=== PATIENT | female | born 2000 | race Caucasian/White ===

== ENCOUNTER 2023-06-01 14:16 | Outpatient (CLI) | payer OTHER, SELFPAY | END 2023-06-01 14:17 | disposition home or self-care (01) | LOC: NFLDREF 06-05 05:52 | PROVIDERS: PCP Family Medicine; Referring Provider Family Medicine; Visit Provider Family Medicine | DX: Z11.59 Encounter for screening for other viral diseases (principal); Z11.1 Encounter for screening for respiratory tuberculosis | CPT/HCPCS: 86480; 86787; 87341 ==

== ENCOUNTER 2023-10-21 13:44 | Outpatient (CLI) | payer OTHER, SELFPAY | END 2023-10-21 13:45 | disposition home or self-care (01) | LOC: RAD 13:45 | PROVIDERS: PCP Family Medicine; Visit Provider Family Medicine | DX: R00.0 Tachycardia, unspecified (principal) | CPT/HCPCS: 93306 ==

== ENCOUNTER 2023-10-23 09:41 | Outpatient (CLI) | payer OTHER, SELFPAY | END 2023-10-23 09:42 | disposition home or self-care (01) | LOC: FRMREF 09:42 | PROVIDERS: PCP Family Medicine; Visit Provider Family Medicine | DX: Z32.02 Encounter for pregnancy test, result negative (principal) | CPT/HCPCS: 84702 ==

== ENCOUNTER 2024-01-14 10:31 | Outpatient (CLI) | payer OTHER, SELFPAY ==
--- OUTSIDE RECORDS SUMMARY | 2024-01-17 22:04 | XMS_ITS | Clinical Summary ---
Author Organization [facility] Address [place], [place] [address] Care Team Providers Care T Rail Turner Name Role Phone Ivan Alba Pack CNM Unavailable [phone] Felicity Byrd MD Unavailable Gail Francis NP Primary Care Provider [phone] Allergies Active Allergy Reactions Criticality Noted Date Comments Codeine Hives 04/26/2014 Flu Virus Vaccine Tv 2015-16 (18 Yr And Up),Recomb Anaphylaxis,Hives,Shortne ss Of Breath,Edema High 04/23/2019 Nickel Hives 04/26/2014 Penicillins Hives 08/25/2021 D And C Red No.22 Hives 04/26/2014 Medications Medication Sig Dispensed Refills Start Date End Date Status dextroamphetamine-amphe tamine (ADDERALL) 20 mg tablet Take 20 mg by mouth 2 times daily. 01/02/2021 Active multivit with calcium,iron,min (WOMEN'S MULTIPLE VITAMINS ORAL) 07/03/2019 Active drospirenone-ethinyl estradioL (FAVIAN) 3-0.02 mg tabletIndications:Encou nter for other contraceptive management Take 1 Tablet by mouth once daily. 84 Tablet 3 08/06/2022 Active Active Problems Problem Noted Date Diagnosed Date Pap smear for cervical cancer screening 10/31/19 Overview: 10/2022 NIL Plan: Pap/HPV due in 3 years Abnormal TSH 04/26/2014 Overview: TSH (uIU/mL) Date Value 04/26/2014 <0.01 (L) Depression with anxiety 08/03/2009 Overview: Depression/anxiety since 2009 Treated with fluoxetine, therapy Resolved Problems Problem Noted Date Diagnosed Date Resolved Date IUD (intrauterine device) in place 05/02/2021 01/29/2022 Overview: Paragard IUD placed 11/15/2019 -- [facility]on since 201409/03/2014 021 Overview: Nexplanon 09/2014 Depo 05/2013-05/2014 (gained 40 lbs) Encounters Date Type Department Care Team Description 10/21/2023 2:00 PM CDT Ancillary Procedure [facility] [address] [place] [address] from Last 3 Months Immunizations Name Administration Dates Next Due COVID-19 vaccine (Otto Clave-Bio NTech 30mcg/0.3mL) 12YO+ BIVALENT PF, MDV 11/15/2021 COVID-19 vaccine (Otto Clave-Bio NTech 30mcg/0.3mL) PF, MDV 12/21/2020,11/30/2020 DTP 05/26/2000 DTaP 12/11/2003, 0,04/01/1999,01/15,1998 HIB PRP-T (ActHIB,Hiberix) 1999 HIB-HepB (Comvax) 04/01/1999,1998 Hepatitis B (Peds) 04/01/1999 Hib Conjugate, Unspecified 1999 Human Papilloma Virus Vaccine 02/25/2013, 012,03/20/2011 Inactivated Polio Vaccine 12/11/2003,,01/15/1999,11/12 Influenza Virus, Unspecified 07/24/2020(Deferred : Patient Refused) MMR 12/11/2003,1999 Meningococcal Vaccine (Menactra) 03/20/2011 Polio Virus, Unspecified 01/15/1999,1998 Rotavirus Pentavalent (ROTATEQ) 01/15/1999,11/12 Tdap 08/25/2021,03/20/2011 Varicella Vaccine 1999 Family History Medical History Relation Name Comments Drug Abuse Brother Christoph marijuana Alcoholism Father Shun does AA-sober f or 5 years 03/19/21 Drug Abuse Father Shun Cancer-breast Maternal Grandfather Hyperlipidemia Maternal Grandfather Hypertension Maternal Grandfather Celiac disease Maternal Grandmother Hyperlipidemia Maternal Grandmother Hypertension Maternal Grandmother Obesity Maternal Grandmother Addiction problem Mother Moira Depression Mother Moira Hyperlipidemia Mother Moira Obesity Mother Moira Heart attack Paternal Grandfather Other Paternal Grandfather truck a ccident Diabetes Paternal Grandmother brought by years or drug abuse - ruined her pancrease Drug Abuse Paternal Grandmother Multiple endocrine neoplasia No Family History Thyroid cancer No Family History Relation Name Status Comments Brothmeena Hawthorne Alive Father Shun Alive Maternal Grandfather Alive Maternal Grandmother Alive Mother Moira Alive Paternal Grandfather (Age 52) Paternal Grandmother Social History Tobacco Use Types Packs/Day Years Used Date Smoking Tobacco: Never Cigarettes Qu it: 08/03/2016 Smokeless Tobacco: Never Tobacco Cessation:Counseling Given: Not Answered Alcohol Use Standard Drinks/Week Comments Yes 0 (1 standard drink = 0.6 oz pur e alcohol) social- weekends PHQ-2 Answer Date Recorded PHQ-2 TOTAL SCORE 0 12/10/2021 Social Connections Answer Date Recorded Frequency of Communication with Friends and Fami ly Not on file 2022 Financial Resource Strain Answer Date R ecorded Difficulty of Paying Living Expenses 3 08/25/2021 Difficulty of Paying Living Expenses Not on file 08/25/2021 Food Insecurity Answer Date Recorded Worried About Running Out of Food in the Last Ye ar 1 08/25/2021 Transportation Needs Answer Date Record ed Lack of Transportation (Medical) 1 08/25/2021 Housing Stability Answer Date Recorded Unable to Pay for Housing in the Last Year 1 08/25/2021 Sex and Gender Information Value Date Recorded Sex Assigned at Female 03/13/2021 8:46 AM CDT Gender Identity Female 03/13/2021 8:46 AM CDT Sexual Orientation Straight 03/13/2021 8: 46 AM CDT Obstetrics History Para Term AB IAB SAB Ectopic Multiple Livin g Live Births 0 0 0 0 0 0 0 0 0 0 0 Last Filed Vital Signs Vital Sign Reading Time Taken Comments Blood Pressure 140/94 10/08/2022 11:22 AM CUT OFF SAWYER Pulse 99 01/29/2022 3:14 PM CDT Temperature 36.8 ??C (98.2 ??F) 08/25/2021 2:22 PM CS T Respiratory Rate 18 08/25/2021 2:22 PM CUT OFF SAWYER Oxygen Saturation 97% 08/25/2021 2:22 PM CUT OFF SAWYER Inhaled Oxygen Concentration - - Weight 76.7 kg (169 lb) 10/08/2022 11:22 AM CUT OFF SAWYER Height 152.4 cm (5') 10/08/2022 11:22 AM CUT OFF SAWYER Body Mass Index 33.01 10/08/2022 11:22 AM CUT OFF SAWYER Plan of Treatment Health Maintenance Due Date Last Done Comments Depression screening for age 12+ 12/10/2022 12/10/2021, 03/15/2021, 03/14/2021, Additional history exists COVID-19 vaccine series ( season) 2023 11/15/2021, 12/21/2020, 11/30/2020 BMI (ht and wt on same day) for age 18+ 10/09/2023 10/08/2022, 06/02/2022, 12/10/2021, Additional history exists Influenza for age 9-49 04/03/2024 Pap test for age 21-65 10/08/2025 3, 10/13/2019 ([facility] Tetanus booster 08/25/2031 08/25/2021, 03/20/2011 HPV series for age 9-26 Completed 02/26/20 13, 08/25/2011, 03/20/2011 HIV for age 15-65 Completed 03/14/2021 Hepatitis C screening for age 18-79 Completed 03/14/2021 Tdap Completed 08/25/2021, 03/20/2011 Pneumococcal series for age 6-64 Aged Out No longer eligible based on patient's age to complete this topic Procedures Procedure Name Priority Date/Time Associated Diagnosis Comments ECHO TTE COMPLETE WO CONTRAST Routine 10/21/2023 2:23 PM CDT Tachycardia RIB CUTTER THIN PREP PAP SCREEN IMAGED Routine 10/08/2022 11:41 AM CUT OFF SAWYER Pap smear for cervical cancer screening ANTI HIV 1/2 Routine 03/14/2021 2:50 PM CDT Vaginal odor ANTI HCV Routine 03/14/2021 2:50 PM CDT Vaginal odor from Last 3 Months or Most Recently Relevant to Health Maintenance Results * ECHO TTE COMPLETE WO CONTRAST (10/21/2023 2:23 PM CDT) AORTIC VALVE MEAN PG 6 mmHg EJECTION FRACTION 70 % LVEDD 4.4 cm Anatomical Region Laterality Modality Ultrasound 10/21/2023 2:02 PM CDT Narrative 10/21/2023 2:48 PM CDT ECHOCARDIOGRAM MEENA MCNEIL ? Accession#: ?? [id number] : ?2000 23 years Study Date: ?? 10/21/2023 2:02:20 PM Gender: F ?BP: ? 144/98 mmHg Height: 152.00 cm ?BSA: ?1.82 m? ? ? Weight: 86.00 kg ? Tech: ? MCK ? Referring MD: MERLY MAYO Site: ? [facility] Reading Location: Mobile-OP Patient Location: Outpatient. Procedure: 2D, Color Doppler and Spectral Doppler. Indication for study: Tachycardia Cardiac Rhythm: Sinus tachycardia.Study quality: Fair. Final Impressions: 1. Normal left ventricular size, normal wall thickness, normal global systolic function, calculated EF of 70 %. 2. Right ventricular cavity size is normal, global systolic RV function is normal. 3. No significant valve disease detected. 4. No pericardial effusion. Chamber Sizes and Function Normal left ventricular size, normal wall thickness, normal global systolic function, calculated EF of 70 %. No definite resting regional wall motion abnormality seen. Left atrial size is normal. Right ventricular cavity size is normal, global systolic RV function is normal. The right atrium is normal. Right atrial volume index is 9 ml/m? ? ?. Right atrial area is 9 cm? ? ?. The pulmonary artery is of normal size and origin. The sinus of Valsalva is normal sized. The ascending aorta is normal sized. Valves, RV Pressures and Diastolic Function The aortic valve is normal in structure and trileaflet, no stenosis and no regurgitation. The mitral valve is normal in structure, no mitral regurgitation. Indeterminate pattern of LV diastolic filling. The tricuspid valve is normal in structure. Tricuspid regurgitation is regurgitation is not evident. The pulmonic valve is normal. No pulmonary regurgitation. Masses, Effusion, Shunts There is no pericardial effusion. The inferior vena cava is normal sized, respiratory size variation greater than 50%. No left to right shunting was detected by limited color flow Doppler interrogation of the interatrial septum. MEASUREMENTS AND CALCULATIONS 2-D Measurements and LV Function: LVID (d) 4.4 cm Planimetered EF 70 % LVID (s) 2.2 cm LV FS% (2D) ? 51 % IVS (d) ??0.9 cm LVOT diameter ?? 2.0 cm LVPW (d) 0.8 cm HR ?120 bpm Ao Sinus 2.6 cm LA Vol index ?14 ml/m2 Asc Ao ?? 3.1 cm RA Vol index ?9 ml/m2 LA ? 3.2 cm RA area ? 9 cm?RV Max 4C (d) ?? 3.0 cm Aortic Valve: Vmax ? 1.7 m/s ??NAKIA (V) ?? 2.31 cm? ? ? VTI ?0.26 m ?? NAKIA (I) ?? 2.52 cm? ? ? LVOT V max 1.2 m/s ??Max PG ?12 mmHg LVOT VTI ?? 0.20 m ?? Mean PG ?? 6 mmHg SV ? 64 ml ?Dim Index 0.77 SV index ?? 35 ml/m? ? ? CO ?7.7 l/min ?CI ?4.2 l/min/m? ? ? Tricuspid Valve and estimated PA pressures: TAPSE 2.8 cm . This study was interpreted by an [facility] accredited facility. CC: HIM ([facility]. ??Final ?? Procedure Note Rohini Rollins MD - 10/21/2023 ECHOCARDIOGRAM MEENA MCNEIL : 2000 23 years Study Date: 10/21/2023 2:02:20 PM Gender: F BP: 144/98 mmHg Height: 152.00 cm BSA: 1.82 m? ? ? Weight: 86.00 kg Tech: [facility] Referring MD: MERLY MAYO Site: [facility] Reading Location: Mobile-OP Patient Location: Outpatient. Procedure: 2D, Color Doppler and Spectral Doppler. Indication for study: Tachycardia Cardiac Rhythm: Sinus tachycardia.Study quality: Fair. Final Impressions: 1. Normal left ventricular size, normal wall thickness, normal globalsystolic function, calculated EF of 70 %. 2. Right ventricular cavity size is normal, global systolic RV functionis normal. 3. No significant valve disease detected. 4. No pericardial effusion. Chamber Sizes and Function Normal left ventricular size, normal wall thickness, normal globalsystolic function, calculated EF of 70 %. No definite resting regionalwall motion abnormality seen. Left atrial size is normal. Rightventricular cavity size is normal, global systolic RV function is normal.The right atrium is normal. Right atrial volume index is 9 ml/m? ? ?. Rightatrial area is 9 cm? ? ?. The pulmonary artery is of normal size and origin.The sinus of Valsalva is normal sized. The ascending aorta is normalsized. Valves, RV Pressures and Diastolic Function The aortic valve is normal in structure and trileaflet, no stenosis and noregurgitation. The mitral valve is normal in structure, no mitralregurgitation. Indeterminate pattern of LV diastolic filling. Thetricuspid valve is normal in structure. Tricuspid regurgitation isregurgitation is not evident. The pulmonic valve is normal. No pulmonaryregurgitation. Masses, Effusion, Shunts There is no pericardial effusion. The inferior vena cava is normal sized,respiratory size variation greater than 50%. No left to right shunting wasdetected by limited color flow Doppler interrogation of the interatrialseptum. MEASUREMENTS AND CALCULATIONS 2-D Measurements and LV Function: LVID (d) 4.4 cm Planimetered EF 70 % LVID (s) 2.2 cm LV FS% (2D) 51 % IVS (d) 0.9 cm LVOT diameter 2.0 cm LVPW (d) 0.8 cm HR 120 bpm Ao Sinus 2.6 cm LA Vol index 14 ml/m2 Asc Ao 3.1 cm RA Vol index 9 ml/m2 LA 3.2 cm RA area 9 cm? ? ? RV Max 4C (d) 3.0 cm Aortic Valve: Vmax 1.7 m/s NAKIA (V) 2.31 cm? ? ? VTI 0.26 m NAKIA (I) 2.52 cm? ? ? LVOT V max 1.2 m/s Max PG 12 mmHg LVOT VTI 0.20 m Mean PG 6 mmHg SV 64 ml Dim Index 0.77 SV index 35 ml/m? ? ? CO 7.7 l/min CI 4.2 l/min/m? ? ? Tricuspid Valve and estimated PA pressures: TAPSE 2.8 cm . This study was interpreted by an [facility] accredited facility. CC: JACQUELINE ([facility]. Final Merly Mayo MD ECHO ORD * RIB CUTTER THIN PREP PAP SCREEN IMAGED (10/08/2022 11:41 AM CUT OFF SAWYER) Case Report Gynecologic Cytology Report ? Case: [id number] ? Authorizing Provider: ??Alba Love CNM ??Collected: ? 10/08/2022 1141 ? [facility] ??Received: ?10/08/2022 1521 ? Clinic ? First Screen: ?Maribel Sousa ? Specimen: ?RIB CUTTER ThinPrep Vial Screening, Cervical ? 10/29/2022 3:21 PM CDT [facility] INTERPRETATION/ RESULT NEGATIVE FOR INTRAEPITHELIAL LESION OR MALIGNANCY (NIL) (none) 10/29/2022 3:21 PM CDT [facility] LABORATORY-C ENTRAL LABORATORY IMEN ADEQUACY Satisfactory for evaluation Endocervical component present 10/29/2022 3:21 PM CDT [facility] [employer] LABORATORY-C ENTRAL LABORATORY Date of LMP 09/29/2022 10/29/2022 3:21 PM CDT [facility]- ENTRAL LABORATORY Last Pap Date 10/13/2019 10/29/2022 3:21 PM CDT [facility] ENTRAL LABORATORY Last Pap Result NIL 3:21 PM CDT [facility] ENTRAL LAB[facility]ATORY Abnormal Pap or [place] Bx in last 5 years No 10/29/2022 3:21 PM CDT [facility] ENTRAL LABORATORY Menstrual Status Regular Periods 10/29/2022 3:21 PM CDT [facility] ENTRAL LABORATORY [place] Bx Done Today No 10/29/2022 3:21 PM CDT [facility] ENTRCA LABORATORY Additional Information None given 10/29/2022 3:21 PM CDT [facility] ENTRAL LABORATORY Comment: Cytology is screened at [facility] - [address], [place] [address] and [facility] - [address], [place] [address] [address] [facility] - [address] [place] [address] Interpreted at [facility] - [address] [place] [address] Automated Review Successful 10/29/2022 3:21 PM CDT [facility] ENTRCA LABORATORY Comment:Specimen processed s uccessfully by automated agate setter device, ThinPrep Imaging System, [employer] Note The pap test is a screening technique, not a diagnostic procedure. It is used primarily to screen for squamous cancers and precursor lesions. Published studies have shown that it is subject to both false negative and false positive results. The pap test should not be used as the sole means to diagnose or exclude pre-malignant and malignant lesions. 10/29/2022 3:[address] [facility] LABORATORY Other (Cervical) Non-Blood / Unknown 10/08/2022 11:41 AM CUT OFF SAWYER 10/08/2022 3:21 PM CUT OFF SAWYER Alba Love CNM PATHOLOGY/CYTOLO GY [facility] [address] * ANTI HCV (03/14/2021 2:50 PM CDT) HEPATITIS C ANTIBODY Non-React brandon Non-React brandon 03/14/2021 10:42 PM CDT [facility] TRAL LABORATORY Comment:Antibodies to HCV no t detected; does not exclude the possibility of exposure to HCV. Blood BLOOD SPECIMEN / Unknown Venipuncture / Unknown 03/14/2021 2:50 PM CDT 03/14/2021 2:51 PM CDT Chikis Bowling CNM SEND OUTS [facility] [address] [place] [address], * ANTI HIV 1/2 (03/14/2021 2:50 PM CDT) HIV-1/HIV-2 ANTIBODY Non-Reacti ve Non-Reacti ve 03/14/2021 10:37 PM CDT [facility] TRAL LABORATORY Comment:HIV-1 p24 and HIV-1/ HIV-2 Ab not detected. Blood BLOOD SPECIMEN / Unknown Venipuncture / Unknown 03/14/2021 2:50 PM CDT 03/14/2021 2:51 PM CDT Chikis ALVARADO SEND OUTS [facility] [address] from Last 3 Months or Most Recently Relevant to Health Maintenance Care Teams T Rail Turner Relationship Specialty [place] [address] [place] [address] PCP - General Nurse Practitioner 12/10/21 Alba oLve CNM [facility] [place], [place] [phone] SENIOR SOFTWARE DEVELOPER Certified Nurse Slabber Light 06/19/21 Felicity Byrd MD [address] [place] [address] [id number] SENIOR SOFTWARE DEVELOPER Obstetrics and Gynecology 06/19/21 [facility] [address] [place] [address] Therapist 05/03/14
== END 2024-01-14 10:32 | disposition home or self-care (01) ==
LOC: NFLDREF 01-17 22:03
PROVIDERS: PCP Family Medicine; Referring Provider Family Medicine; Visit Provider Family Medicine
DX: N91.2 Amenorrhea, unspecified (principal)
CPT/HCPCS: 84702

== ENCOUNTER 2024-03-24 11:36 | Outpatient (CLI) | payer OTHER, SELFPAY ==
--- OUTSIDE RECORDS SUMMARY | 2024-03-24 11:41 | XMS_ITS | Clinical Summary ---
Author Organization [employer] [facility] Address [place], [place] [address] Care Team Providers Care Virtual Customer Assistant Name Role Phone Alba Love CNM Unavailable Felicity Byrd MD Unavailable [phone] Gail Francis NP Primary Care Provider [phone] Allergies Active Allergy Reactions Criticality Noted Date [...] Pap smear for cervical cancer screening 10/31/19 23 Overview: 10/2022 NIL Plan: Pap/HPV due in [...] Nexplanon 09/2014 Depo 05/2013-05/2014 (gained 40 lbs) Immunizations Name Administration Dates Next Due COVID-19 vaccine (elmenus-Bio NTech 30mcg/0.3mL) 12YO+ BIVALENT PF, MDV 11/15/2021 COVID-19 vaccine (elmenus-Bio NTech 30mcg/0.3mL) PF, MDV 12/21/2020,11/30/2020 DTP 05/26/2000 [...] No Family History Relation Name Status Comments Brother Christoph Alive Father Shun Alive Maternal Grandfather Alive [...] Comments Blood Pressure 140/94 10/08/2022 11:22 AM STATUE MAKER Pulse 99 01/29/2022 3:14 PM CDT Temperature 36.8 ??C (98.2 ??F) 08/25/2021 2:22 PM CS T Respiratory Rate 18 08/25/2021 2:22 PM STATUE MAKER Oxygen Saturation 97% 08/25/2021 2:22 PM STATUE MAKER Inhaled Oxygen Concentration - - Weight 76.7 kg (169 lb) 10/08/2022 11:22 AM STATUE MAKER Height 152.4 cm (5') 10/08/2022 11:22 AM STATUE MAKER Body Mass Index 33.01 10/08/2022 11:22 AM STATUE MAKER Plan of Treatment Health Maintenance Due Date Last Done Comments Depression screening for age 12+ 12/10/2022 12/10/2021, 03/15/2021, 03/14/2021, Additional history exists COVID-19 vaccine series () 04/03/2023 11/15/2021, 12/21/2020, 11/30/2020 BMI (ht and wt on same day) for age 18+ 10/09/2023 10/08/2022, 06/02/2022, 12/10/2021, Additional history exists Influenza for age 9-49 04/03/2024 Pap test for age 21-65 10/08/2025 3, 10/13/2019 (Completed outside of [facility]) Tetanus booster 08/25/2031 08/25/2021, 03/20/2011 HPV series for age 9-26 Completed 02/26/20 13, 08/25/2011, 03/20/2011 HIV for age 15-65 Completed 03/14/2021 Hepatitis C screening for age 18-79 Completed 03/14/2021 Tdap Completed 08/25/2021, 03/20/2011 Pneumococcal series for age 6-64 Aged Out No longer eligible based on patient's age to complete this topic Procedures Procedure Name Priority Date/Time Associated Diagnosis Comments METER/RELAY TECHNICIAN THIN PREP PAP SCREEN IMAGED Routine 10/08/2022 11:41 AM STATUE MAKER Pap smear for cervical cancer screening ANTI HIV 1/2 Routine 03/14/2021 2:50 PM CDT Vaginal odor ANTI HCV Routine 03/14/2021 2:50 PM CDT Vaginal odor from Last 3 Months or Most Recently Relevant to Health Maintenance Results * METER/RELAY TECHNICIAN THIN PREP PAP SCREEN IMAGED (10/08/2022 11:41 AM STATUE MAKER) Case Report Gynecologic Cytology Report ? Case: [id number] ? Authorizing Provider: ??Alba Love CNM ??Collected: ? 10/08/2022 1141 ? Ordering Location: ? [facility] ??Received: ?10/08/2022 1521 ? Clinic ? First Screen: ?Maribel Sousa ? Specimen: ?METER/RELAY TECHNICIAN ThinPrep Vial Screening, Cervical ? 10/29/2022 3:21 PM CDT [facility] LABORATORY-C ENTRAL LABORATORY INTERPRETATION/ RESULT NEGATIVE FOR INTRAEPITHELIAL LESION OR MALIGNANCY (NIL) (none) 10/29/2022 3:21 PM CDT [facility]-C ENTRAL LABORATORY IMEN ADEQUACY Satisfactory for evaluation Endocervical component present 10/29/2022 3:21 PM CDT [facility] ENTRAL LABORATORY Date of LMP 09/29/2022 10/29/2022 3:21 PM CDT [facility] ENTRAL LABORATORY Last Pap Date 10/13/2019 10/29/2022 3:21 PM CDT [facility] ENTRAL LABORATORY Last Pap Result NIL 3:21 PM CDT [facility] ENTRAL LABORATORY Abnormal Pap or [place] Bx in last 5 years No 10/29/2022 3:21 PM CDT [facility] ENTRAL LABORATORY Menstrual Status Regular Periods 10/29/2022 3:21 PM CDT [facility] ENTRAL LABORATORY [place] Bx Done Today No 10/29/2022 3:21 PM CDT [facility] ENTRAL LABORATORY Additional Information None given 10/29/2022 3:21 PM CDT [facility] ENTRAL LABORATORY Comment: Cytology is screened at [facility] - [address], [place] [address] and [facility] - [address], [place] [address] and [facility] - [address] [place], [place] [address] [place] [address] Interpreted at [facility] - [address] [place] [id number] Automated Review Successful 10/29/2022 3:21 PM T [facility] ENTRWA LABORATORY Comment:Specimen processed s uccessfully by automated slide fastener chain assembler device, ThinPrep Imaging System, [employer] Note The pap test is a [...] and malignant lesions. 10/29/2022 3:21 PM CDT [facility] ENTRAL LABORATORY Other (Cervical) Non-Blood / Unknown 10/08/2022 11:41 AM STATUE MAKER 10/08/2022 3:21 PM STATUE MAKER Alba Love CNM PATHOLOGY/CYTOLO GY [facility] LABORATORY [address] [place] [address], * ANTI HCV (03/14/2021 2:50 PM CDT) HEPATITIS C ANTIBODY Non-React brandon Non-React brandon 03/14/2021 10:42 PM CDT [facility] TRAL LABORATORY Comment:Antibodies to HCV no t detected; does not exclude the possibility of exposure to HCV. Blood BLOOD SPECIMEN / Unknown Venipuncture / Unknown 03/14/2021 2:50 PM CDT 03/14/2021 2:51 PM CDT Chikis ALVARADOM SEND OUTS Performing Organization Address City/[facility]/ZIP Co de Phone Number [facility] LABORATORY [address] [place] [address], * ANTI HIV 1/2 (03/14/2021 2:50 PM CDT) HIV-1/HIV-2 ANTIBODY Non-Reacti ve Non-Reacti ve 03/14/2021 10:37 PM CDT [facility] TRAL LABORATORY Comment:HIV-1 p24 and HIV-1/ HIV-2 Ab not detected. Blood BLOOD SPECIMEN / Unknown Venipuncture / Unknown 03/14/2021 2:50 PM CDT 03/14/2021 2:51 PM CDT Chikis Bowling CNM SEND OUTS [facility] LABORATORY [address] [place] [address], from Last 3 Months or Most Recently Relevant to Health Maintenance Care Teams Virtual Customer Assistant Relationship Specialty [place] [address] [address] [place], [place] [phone] PCP - General Nurse Practitioner 12/10/21 Alba Love CNM [facility] [place], [place] [phone] PET SITTER Certified Nurse Yard Warehouse Worker 06/19/21 Felicity Byrd MD [address] [place] [address] [id number] PET SITTER Obstetrics and Gynecology 06/19/21 [facility] [address] [place], [place] [phone] Therapist 05/03/14
== END 2024-03-24 11:37 | disposition home or self-care (01) ==
PROVIDERS: PCP Family Medicine; Visit Provider Family Medicine
DX: D69.9 Hemorrhagic condition, unspecified (principal); R23.3 Spontaneous ecchymoses; Z30.9 Encounter for contraceptive management, unspecified
CPT/HCPCS: 85240; 85245; 85246; 85610; 85730

== ENCOUNTER 2024-04-14 07:50 | Outpatient (CLI) | payer OTHER, SELFPAY ==
--- OUTSIDE RECORDS SUMMARY | 2024-04-18 14:44 | XMS_ITS | Clinical Summary ---
Author Organization [employer] [facility] Address [place], [place] [address] Care Team Providers Care Senior Staff Specialized Employment Name Role Phone Alba Love CNM Unavailable [phone] Felicity Byrd MD Unavailable [phone] Gail Francis NP Primary Care Provider [phone] Allergies Active Allergy Reactions Criticality Noted Date [...] smear for cervical cancer screening 10/31/19 23 Overview (10/30/2022): 10/2022 NIL Plan: Pap/HPV due in 3 years Abnormal TSH 04/26/2014 Overview (04/26/2017): TSH (uIU/mL) Date Value 04/26/2014 <0.01 (L) Depression with anxiety 08/03/2009 Overview (04/26/2017): Depression/anxiety since 2009 Treated with fluoxetine, therapy Resolved Problems Problem Noted Date Diagnosed Date Resolved Date IUD (intrauterine device) in place 05/02/2021 01/29/2022 Overview (05/02/2021): Paragard IUD placed 11/15/2019 -- [facility] Nex[facility]on since 201409/03/2014 021 Overview (04/30/2017): Nexplanon 09/2014 Depo 05/2013-05/2014 (gained 40 lbs) Encounters Date Type Department Care Team Description 03/24/[address] [facility] [phone] Merly Drake MD from Last 3 Months Immunizations Name Administration Dates Next Due COVID-19 vaccine (Cima NanoTech-Bio NTech 30mcg/0.3mL) 12YO+ BIVALENT PF, MDV 11/15/2021 COVID-19 vaccine (Cima NanoTech-Bio NTech 30mcg/0.3mL) PF, MDV 12/21/2020,11/30/2020 DTP 05/26/2000 [...] Comments Blood Pressure 140/94 10/08/2022 11:22 AM TIP BANDING MACHINE OPERATOR Pulse 99 01/29/2022 3:14 PM CDT Temperature 36.8 ??C (98.2 ??F) 08/25/2021 2:22 PM CS T Respiratory Rate 18 08/25/2021 2:22 PM TIP BANDING MACHINE OPERATOR Oxygen Saturation 97% 08/25/2021 2:22 PM TIP BANDING MACHINE OPERATOR Inhaled Oxygen Concentration - - Weight 76.7 kg (169 lb) 10/08/2022 11:22 AM TIP BANDING MACHINE OPERATOR Height 152.4 cm (5') 10/08/2022 11:22 AM TIP BANDING MACHINE OPERATOR Body Mass Index 33.01 10/08/2022 11:22 AM TIP BANDING MACHINE OPERATOR Plan of Treatment Health Maintenance Due Date Last Done Comments Depression screening for age 12+ 12/10/2022 12/10/2021, 03/15/2021, 03/14/2021, Additional history exists BMI (ht and wt on same day) for age 18+ 10/09/2023 10/08/2022, 06/02/2022, 12/10/2021, Additional history exists COVID-19 vaccine series ( season) 2024 11/15/2021, 12/21/2020, 11/30/2020 Influenza for age 9-49 04/03/2024 Pap test for age 21-65 10/08/2025 3, 10[facility]13[facility] Tetanus booster 08/25/2031 08/25/2021, 03/20/2011 HPV series for age 9-26 Completed 02/26/20 13, 08/25/2011, 03/20/2011 HIV for age 15-65 Completed 03/14/2021 Hepatitis C screening for age 18-79 Completed 03/14/2021 Tdap Completed 08/25/2021, 03/20/2011 Pneumococcal series for age 6-64 Aged Out No longer eligible based on patient's age to complete this topic Procedures Procedure Name Priority Date/Time Associated Diagnosis Comments LAB TRACKING EVENT Routine 03/24/2024 11 :50 AM CDT PERIPHERAL BLD MORPHOLOGY Routine 03/24/2024 11:50 AM CDT RETICULOCYTES Routine 03/24/2024 11:50 AM CDT FOXPRO DEVELOPER THIN PREP PAP SCREEN IMAGED Routine 10/08/2022 11:41 AM TIP BANDING MACHINE OPERATOR Pap smear for cervical cancer screening ANTI HIV 1/2 Routine 03/14/2021 2:50 PM CDT Vaginal odor ANTI HCV Routine 03/14/2021 2:50 PM CDT Vaginal odor from Last 3 Months or Most Recently Relevant to Health Maintenance Results * LAB TRACKING EVENT (03/24/2024 11:50 AM CDT) Other (Other) Client Collect / Unknown 03/24/2024 11:50 AM CDT 03/24/2024 5:03 PM CDT Merly Drake MD LAB BILL ONLY [facility] [address] [place] [address], * PERIPHERAL BLD MORPHOLOGY (03/24/2024 11:50 AM CDT) Case Report Special Hematology Report ? Case: [id number] ? Authorizing Provider: ??Merly Drake MD ?? Collected: ? 03/24/2024 1150 ? Ordering Location: ? [facility] ?Received: ?03/24/2024 2113 ? Pathologist: ? Oracio Wood MD ? Specimen: ?Peripheral Blood ? 03/25/2024 11:22 AM CDT [facility] Final Diagnosis PERIPHERAL BLOOD: No diagnostic alterations 03/25/2024 11:22 AM CDT [facility] Clinical Information No clinical information 03/25/2024 11:22 AM CDT [facility] CBC and Differential HEMATOLOGY PARAMETERS Tested at: ??[facility] ? RESULTS ??EXPECTED VALUES WBC: ? 7.1 ?4.5-73k3063/cu mm ? RBC: ? 4.46 ? 4.00-5.20 mil/cumm HGB: ? 14.9 ? 12-16 gm/dl ? HCT: ? 43.7 ? 33-51% ? MCV: ? 98.0 ? 80-100 fl ? NORMOCYTIC MCH: ? 33.4 ? 26-34 pg ? MCHC: ?34.1 ? 32-36 gm/dl ? NORMOCHROMIC RDW: ? 11.9 ? 11.5-15.5% ? PLT: ? 261 ?140-748c9139/u L ? MPV: ? 10.7 ? 6.5-11 fl ? Retic: ?? 2.0 ?0.5-1.5% ?ELEVATED Differential ?Tested at: ??[facility] ?Absolute (%) ?Expected (%) ?(x10*9/L) ? (x10*9/L) Neutrophils: ?4.72 (66.4) ? 1.7-7.0 (42-72%) ? Lymphocytes: ?1.64 (23.1) ? 0.9-2.9 (20-44%) ?? Monocytes: ?0.57 (8) ? <0.9 (0-11%) ? Eosinophils: ?0.11 (1.5) ? <0.5 (0-2%) ? Basophils: ?0.06 (.8) ?<0.3 (<3.0%) ? Imm Grans: ?0.01 (.1) ?<0.3 (0-3%) ? (Metas, Myelos,Pros) 03/25/2024 11:22 AM CDT [facility] Reticulocytes Retic: 2.0 0.5-1.5% ELEVATED 03/25/2024 11:22 AM T [facility] Microscopic Description The final diagnosis is based on microscopic examination of an appropriately stained blood smear. 03/25/2024 11:22 AM T [facility] Additional Information Interpreted at [facility] - [address], [place] [address] 03/25/2024 11:22 AM CDT [facility] Blood (Peripheral Blood) 03/24/2024 11:50 AM CDT 03/24/2024 9:13 PM CDT Merly Drake MD HEMATOLOGY Performing Organization Address City/[facility]/ZIP Co de Phone Number [facility] [address] [place] [address], * (ABNORMAL) RETICULOCYTES (03/24/2024 11:50 AM CDT) RETIC% 1.8(H) 0.5 - 1.5 % 03/24/2024 5:17 PM CDT [facility] RETIC (ABSOLUTE) 0.08 0.03 - 0.08 mil/cu mm 03/24/2024 5:17 PM CDT [facility] Blood BLOOD SPECIMEN / Unknown Client Collect / Unknown 03/24/2024 11:50 AM CDT 03/24/2024 5:14 PM CDT Merly Drake MD HEMATOLOGY Performing Organization Address City/[facility] Co de Phone Number [facility] [address] * FOXPRO DEVELOPER THIN PREP PAP SCREEN IMAGED (10/08/2022 11:41 AM TIP BANDING MACHINE OPERATOR) Case Report Gynecologic Cytology Report ? Case: [id number] ? Authorizing Provider: ??Alba Love CNM ??Collected: ? 10/08/2022 1141 ? Ordering Location: ? [facility] ??Received: ?10/08/2022 1521 ? Clinic ? First Screen: ?Maribel Sousa ? Specimen: ?FOXPRO DEVELOPER ThinPrep Vial Screening, Cervical ? 10/29/2022 3:21 PM CDT [facility] INTERPRETATION/ RESULT NEGATIVE FOR INTRAEPITHELIAL LESION OR MALIGNANCY (NIL) (none) 10/29/2022 3:21 PM CDT [facility] IMEN ADEQUACY Satisfactory for evaluation Endocervical component present 10/29/2022 3:21 PM CDT [facility] Date of LMP 09/29/2022 10/29/2022 3:21 PM CDT [facility] Last Pap Date 10/13/2019 10/29/2022 3:21 PM CDT [facility] Last Pap Result NIL 3:21 PM CDT [facility] Abnormal Pap or [place] Bx in last 5 years No 10/29/2022 3:21 PM CDT [facility] Menstrual Status Regular Periods 10/29/2022 3:21 PM CDT [facility] Ber[place] Bx Done Today No 10/29/2022 3:21 PM CDT [facility] Additional Information None given 10/29/2022 3:21 PM CDT [facility] Comment: Cytology is screened at [facility] - [address], [place] [address] and [facility] - [address], [place] [address] and [facility] - [address] [place] [address] Interpreted at [facility] - [address] [place] [address] Automated Review Successful 10/29/2022 3:21 PM CDT [facility] Comment:Specimen processed s uccessfully by automated upsetter device, ThinPrep Imaging System, [employer] Note The pap test is a [...] and malignant lesions. 10/29/2022 3:21 PM CDT [facility] Other (Cervical) Non-Blood / Unknown 10/08/2022 11:41 AM TIP BANDING MACHINE OPERATOR 10/08/2022 3:21 PM TIP BANDING MACHINE OPERATOR Alba Love CNM PATHOLOGY/CYTOLO GY [facility] [address] [place] [address], [place] * ANTI HCV (03/14/2021 2:50 PM CDT) HEPATITIS C ANTIBODY Non-React brandon Non-React brandon 03/14/2021 10:42 PM CDT [facility] Comment:Antibodies to HCV no t detected; does not exclude the possibility of exposure to HCV. Blood BLOOD SPECIMEN / Unknown Venipuncture / Unknown 03/14/2021 2:50 PM CDT 03/14/2021 2:51 PM CDT Chikis Bowling CNM [facility] [address] [place] [address], [place] * ANTI HIV 1/2 (03/14/2021 2:50 PM CDT) HIV-1/HIV-2 ANTIBODY Non-Reacti ve Non-Reacti ve 03/14/2021 10:37 PM CDT [facility] Comment:HIV-1 p24 and HIV-1/ HIV-2 Ab not detected. Blood BLOOD SPECIMEN / Unknown Venipuncture / Unknown 03/14/2021 2:50 PM CDT 03/14/2021 2:51 PM CDT Chikis ALVARADOM SEND OUTS Performing Organization Address City/[facility]/ZIP Co de Phone Number [facility] [address] [place] [address], from Last 3 Months or Most Recently Relevant to Health Maintenance Care Teams Senior Staff Specialized Employment Relationship Specialty [place] [address] [place] [address] PCP - General Nurse Practitioner 12/10/21 Alba Love CNM [address] [place] [address] ASSOCIATE APPLICATION DEVELOPER Certified Nurse Correctional Treatment Specialist 06/19/21 Felicity Byrd MD [address] [place] [address] [id number] ASSOCIATE APPLICATION DEVELOPER Obstetrics and Gynecology 06/19/21 Rose Meng [facility] [address] [place], [place] [id number] Therapist 05/03/14
== END 2024-04-14 07:51 | disposition home or self-care (01) ==
LOC: NFLDREF 04-18 14:43
PROVIDERS: PCP Family Medicine; Referring Provider Family Medicine; Visit Provider Physician Assistant
DX: N30.01 Acute cystitis with hematuria (principal); B95.7 Other staphylococcus as the cause of diseases classified elsewhere
CPT/HCPCS: 87086; 87186

== ENCOUNTER 2024-06-28 13:59 | Outpatient (CLI) | payer OTHER, SELFPAY ==
--- NOTE | 2024-06-28 14:00 | CRLHL7_ITS ---
For Patients: As a result of the Century Cures Act, medical imaging exams and procedure reports are released immediately into your electronic medical record. You may view this report before your referring provider. If you have questions, please contact your health care provider. INDICATION: excessive and frequent menstruation COMPARISON: none TECHNIQUE: 2D colon scale and color Doppler images were acquired of the pelvis using a transabdominal and transvaginal approach. FINDINGS: Sonographic images demonstrate a normal size and smooth outer contour of the uterus. Uterus measures 7.6 cm in length by 3.5 cm in AP diameter by 4.0 cm in transverse dimension. The myometrium has a normal uniform echotexture. The endometrial lining measures 8 mm in composite thickness. The right ovary measures 2.4 x 0.9 x 2.0 cm in size and the left ovary measures 2.9 x 1.0 x 1.3 cm. The ovaries demonstrate normal arterial and venous blood flow on color Doppler analysis. There are no suspicious fluid collections within the cul-de-sac. IMPRESSION: Endometrial thickness 8 millimeters. No endometrial fluid. No uterine fibroid. Dictated by Josef Edwards MD @ 06/29/2024 12:17:40 PM (Electronically Signed)
--- OUTSIDE RECORDS SUMMARY | 2024-06-28 14:02 | XMS_ITS | Clinical Summary ---
Author Organization [employer] [facility] Address [place], [place] [address] Care Team Providers Care Rigging Up Worker Name Role Phone Alba Love CNM Unavailable [phone] Felicity Byrd MD Unavailable [phone] Gail Francis NP Primary Care Provider [phone] Allergies Active Allergy Reactions Criticality Noted Date [...] Name Administration Dates Next Due COVID-19 vaccine (PostRocket NTech 30mcg/0.3mL) 12YO+ BIVALENT PF, MDV 11/15/2021 COVID-19 vaccine (PostRocket NTech 30mcg/0.3mL) PF, MDV 12/21/2020,11/30/2020 DTP 05/26/2000 [...] Comments Blood Pressure 140/94 10/08/2022 11:22 AM FOUNDER CEO & PRESIDENT Pulse 99 01/29/2022 3:14 PM CDT Temperature 36.8 C (98.2 F) 08/25/2021 2:22 PM FOUNDER CEO & PRESIDENT Respiratory Rate 18 08/25/2021 2:22 PM FOUNDER CEO & PRESIDENT Oxygen Saturation 97% 08/25/2021 2:22 PM FOUNDER CEO & PRESIDENT Inhaled Oxygen Concentration - - Weight 76.7 kg (169 lb) 10/08/2022 11:22 AM FOUNDER CEO & PRESIDENT Height 152.4 cm (5') 10/08/2022 11:22 AM FOUNDER CEO & PRESIDENT Body Mass Index 33.01 10/08/2022 11:22 AM FOUNDER CEO & PRESIDENT Plan of Treatment Health Maintenance Due Date Last Done Comments Depression screening for age 12+ 12/10/2022 12/10/2021, 03/15/2021, 03/14/2021, Additional history exists BMI (ht and wt on same day) for age 18+ 10/09/2023 10/08/2022, 06/02/2022, 12/10/2021, Additional history exists COVID-19 vaccine series (2023- season) 2024 11/15/2021, 12/21/2020, 11/30/2020 Influenza for age 9-49 04/03/2024 Pap test for age 21-65 10/08/2025 3, 10/13/2019 [facility] Tetanus booster 08/25/2031 08/25/2021, 03/20/2011 HPV series for age 9-26 Completed 02/26/20 13, 08/25/2011, 03/20/2011 HIV for age 15-65 Completed 03/14/2021 Hepatitis C screening for age 18-79 Completed 03/14/2021 Tdap Completed 08/25/2021, 03/20/2011 Pneumococcal series for age 6-64 Aged Out No longer eligible based on patient's age to complete this topic Procedures Procedure Name Priority Date/Time Associated Diagnosis Comments PIPE PULLER THIN PREP PAP SCREEN IMAGED Routine 10/08/2022 11:41 AM FOUNDER CEO & PRESIDENT Pap smear for cervical cancer screening ANTI HIV 1/2 Routine 03/14/2021 2:50 PM CDT Vaginal odor ANTI HCV Routine 03/14/2021 2:50 PM CDT Vaginal odor from Last 3 Months or Most Recently Relevant to Health Maintenance Results * PIPE PULLER THIN PREP PAP SCREEN IMAGED (10/08/2022 11:41 AM FOUNDER CEO & PRESIDENT) Case Report Gynecologic Cytology Report Case: [id number] Authorizing Provider: Alba Love CNM Collected: 10/08/2022 1141 Ordering Location: [facility] Received: 10/08/2022 1521 Clinic First Screen: Maribel Sousa Specimen: PIPE PULLER ThinPrep Vial Screening, Cervical 10/29/2022 3:21 PM CDT [facility] INTERPRETATION/ RESULT NEGATIVE FOR INTRAEPITHELIAL LESION OR MALIGNANCY (NIL) (none) 10/29/2022 3:21 PM CDT [facility] IMEN ADEQUACY Satisfactory for evaluation Endocervical component present 10/29/2022 3:21 PM CDT [facility] Date of LMP 09/29/2022 10/29/2022 3:21 PM CDT [facility] Last Pap Date 10/13/2019 10/29/2022 3:21 PM CDT [facility] EN[facility] LABORAT[facility] Last Pap Result NIL 3:21 PM CDT [facility] [employer] [facility] EN[facility] LAB[facility] Abnormal Pap or [place]alt Bx in last 5 years No 10/29/2022 3:21 PM CDT [facility] [employer] LABORATORY-C ENTRAL LABORATORY Menstrual Status Regular Periods 10/29/2022 3:21 PM CDT [facility] [employer] [facility] Galt Bx Done Today No 10/29/2022 3:21 PM CDT [facility] Additional Information None given 10/29/2022 3:21 PM CDT [facility] [employer] [facility] Comment: Cytology is screened at [facility] - [address] [address] and [facility] - [address], [place] [address] and [facility] - [address] [place] [address] Interpreted at [facility] [address] [place] [address] Automated Review Successful 10/29/2022 3:21 PM CDT [facility] Comment:Specimen processed s uccessfully by automated multiple cut off saw operator device, KabanchikPrep Imaging System, [employer] Note The pap test is a [...] and malignant lesions. 10/29/2022 3:21 PM CDT [facility] Other (Cervical) Non-Blood / Unknown 10/08/2022 11:41 AM FOUNDER CEO & PRESIDENT 10/08/2022 3:21 PM FOUNDER CEO & PRESIDENT Alba Love CNM PATHOLOGY/CYTOLO GY Performing Organization Address City/[facility]/ZIP Co de Phone Number [facility] [address] [place] [address], * ANTI HCV (03/14/2021 2:50 PM CDT) [facility] HEPATITIS C ANTIBODY Non-React brandon Non-React brandon 03/14/2021 10:42 PM CDT [facility] Comment:Antibodies to HCV no t detected; does not exclude the possibility of exposure to HCV. Blood BLOOD SPECIMEN / Unknown Venipuncture / Unknown 03/14/2021 2:50 PM CDT 03/14/2021 2:51 PM CDT Chikis Bowling CNM SEND [facility]S [facility] [address] [place] [id number], [place] * ANTI HIV 1/2 (03/14/2021 2:50 PM CDT) HIV-1/HIV-2 ANTIBODY Non-Reacti ve Non-Reacti ve 03/14/2021 10:37 PM CDT [facility] TR[facility] LABORAT[facility] Comment:HIV-1 p24 and HIV-1/ HIV-2 Ab not detected. Blood BLOOD SPECIMEN / Unknown Venipuncture / Unknown 03/14/2021 2:50 PM CDT 03/14/2021 2:51 PM CDT Chikis Bowling CNLilli SEND OUTS [facility]-CENTRAL LABORATORY [address] [place] [address], from Last 3 Months or Most Recently Relevant to Health Maintenance Care Teams Rigging Up Worker Relationship Specialty [place] [address] [place] [address] PCP - General Nurse Practitioner 12/10/21 Alba Love CNM [facility] [place], [place] [address] SAND POLISHER Certified Nurse Front Line Leader 06/19/21 Felicity Byrd MD [facility] [place] [address] SAND POLISHER Obstetrics and Gynecology 06/19/21 Rose Meng [facility] [address] [place] [address] Therapist 05/03/14
== END 2024-06-28 14:00 | disposition home or self-care (01) ==
LOC: US 14:01
PROVIDERS: PCP Family Medicine; Visit Provider Family Medicine
DX: N92.0 Excessive and frequent menstruation with regular cycle (principal); R93.89 Abnormal findings on diagnostic imaging of other specified body structures
CPT/HCPCS: 76830; 76856

== ENCOUNTER 2025-06-06 13:02 | Outpatient (CLI) | payer BC, SELFPAY | END 2025-06-06 13:03 | disposition home or self-care (01) | LOC: NFLDREF 06-09 11:34 | PROVIDERS: PCP Family Medicine; Referring Provider Family Medicine; Visit Provider Family Medicine | DX: Z11.1 Encounter for screening for respiratory tuberculosis (principal) | CPT/HCPCS: 86480 ==

== ENCOUNTER 2025-07-17 15:35 | Outpatient (CLI) | payer BC, SELFPAY | END 2025-07-17 15:36 | disposition home or self-care (01) | PROVIDERS: PCP Family Medicine; Visit Provider Family Medicine | DX: Z00.00 Encounter for general adult medical examination without abnormal findings (principal); Z11.59 Encounter for screening for other viral diseases | CPT/HCPCS: 80053; 80061; 84439; 84443; 86803 ==